=== PATIENT | male | born 1965 | race Caucasian/White ===

== ENCOUNTER 2017-10-04 10:08 | Emergency (ER) | payer SELFPAY ==
[2017-10-04] MEDS ORDERED: ORPHENADRINE CITRATE 60 MG/2ML IM ONE (10:26)
[2017-10-04] MEDS ORDERED: KETOROLAC TROMETHAMINE 60 MG/2 ML VIAL IM ONE (10:26)
[2017-10-04 10:40] VITALS: BP 90/75
--- NOTE | 2017-10-04 10:41 | ED Physician Documentation ---
Low Back Pain - HISTORIAN Historian: patient - HPI Chief Complaint: Low Back Pain/ Injury History: history of chronic pain:, back pain Onset: days ago Duration: worse Recent Injury: No Context: denies: lifting, turning, bending, fall Where: home Further Comments: yes (52 year old male patient presents with complaint of left lumbar back pain. States he has been in bed for the past few days with the flu. C/O back being "stiff", "can't move without it hurting".) - ROS CONST: no problems CVS/RESP: none EYES/ENT: none MS/SKIN/LYMPH: back pain. denies: leg pain Neuro/Psych: none GI/: denies: abdominal pain, black stools - PAST HX Past History: back pain Allergies/Adverse Reactions: Allergies Allergy/AdvReac Type Severity Reaction Status Date / Time No Known Allergies Allergy Verified 10/04/17 10:47 Home Medications: Ambulatory Orders Medication Instructions Recorded NK [NK] 10/04/17 - SOCIAL HX Smoking History: cigarettes - FAMILY HX Family History: denies: none - VITAL SIGNS Vital Signs: Vital Signs Temp Pulse Resp BP Pulse Ox 97.1 F L 122 H 20 90/75 99 10/04/17 10:08 10/04/17 10:08 10/04/17 10:08 10/04/17 10:08 10/04/17 10:08 - REVIEWED ASSESSMENTS Nursing Assessment Reviewed: Yes Vitals Reviewed: Yes ED Results Lab/Radiology - Orders Orders: ED Orders Category Date Time Status Ketorolac Tromethamine [Toradol] Med 10/04/17 10:26 Discontinued 60 mg IM NOW ONE Orphenadrine Citrate [Norflex] Med 10/04/17 10:26 Discontinued 60 mg IM NOW ONE Low Back Pain/Injury - Physical Exam General Appearance: mild distress EENT: eye inspection normal, KATJA Resp/CVS: chest non-tender, breath sounds nml, heart sounds nml, no resp. distress, lungs clear, reg. rate & rhythm Back: painless ROM, muscle spasm (left lumbar paraspinous muscles, tender to palpation), other (able to reposition self, sits up off stretcher, minimal grimace, walks with limp, no grimace, no c/o pain). No: vertebral point- tendernes Straight Leg Raising: Negative Left, Negative Right Neuro/Psych: oriented x3, motor nml, sensation nml, bilat. doriflexion nml, reflexes nml, mood/affect nml Skin: normal color, warm/dry, NR, INT, PAL, DR Extremities: non-tender, normal range of motion, no evidence of injury, no edema , J, [employer] ORIGINATOR Discharge Clincal Impression: Acute low back pain Qualifiers: Back pain laterality: left Sciatica presence: without sciatica Qualified Code(s ): M54.5 - Low back pain Referrals: Sallie Lopez MD [Primary Care Provider] - 2 Days Additional Instructions: Ice Rest Elevation If you are unable to bear weight and continuing to have significant pain on day 3-4; see your PCP for re-evaluation and additional xrays. You may use Tylenol every 4hour as needed for pain. Limit your dose to less than 4 G per day. Do not take ibuprofen, aleve, naproxen or any other NSAID while you are on toradol You may want to try massage, over the counter lidocaine patches, biofreeze, elif plaza or aspercream . Condition: Stable Disposition: 01 HOME, SELF-CARE Decision to Admit: NO Decision Time: 10:41
== END 2017-10-04 10:50 | disposition home or self-care (01) ==
LOC: ED 10:08
DX: M54.5 Low back pain (principal)
CPT/HCPCS: J1885; J2360; 96372; 99282; 99283